=== PATIENT | female | born 1965 | race Caucasian/White ===

== ENCOUNTER 2018-09-08 19:25 | Emergency (ER) | payer MEDICAID, OTHER ==
[2018-09-08] MEDS ORDERED: Albuterol 0.083% Inhal Sol (2.5 mg/3 mL) UD ONE (21:15)
[2018-09-08] MEDS: Albuterol 0.083% Inhal Sol (2.5 mg/3 mL) UD INH SCH (21:15)
[2018-09-08 21:44] VITALS: BP 105/67; PULSE 95; RESP 19; TEMP 98.6; O2SAT 96
[2018-09-08] MEDS ORDERED: Promethazine/Cod 6.25mg-10mg/5ml Syr UD PO STA (21:54)
[2018-09-08] MEDS ORDERED: Promethazine/Cod 6.25mg-10mg/5ml Syr UD ONE (22:06)
--- NOTE | 2018-09-08 22:46 | C.PDOC ---
History Of Present Illness 53 year old female presents with generalized body aches, cough, and fever since yesterday. Denies sick contact, recent travel, SOB, or chest pain. HPI: Influenza Time Seen by Provider: 09/08/18 20:15 Chief Complaint: Flu-like Symptoms History Per: Patient Exam Limitations: no limitations Have you had recent travel within the past 21 days to any of the following countries: [place], [place], [place] or [place]?: No Onset/Duration Of Symptoms: Days (Yesterday) Symptoms include: fever, bodyaches, cough. denies: chest pain, other (SOB) Sick Contacts (Context): None Hx Influenza Vaccination: No Past Medical History Reviewed: Historical Data, Nursing Documentation, Vital Signs Vital Signs: Last Vital Signs Temp 98.6 F 09/08/18 21:42 Pulse 95 H 09/08/18 21:42 Resp 19 09/08/18 21:42 BP 105/67 09/08/18 21:42 Pulse Ox 96 09/08/18 21:42 - Medical History PMH: HTN Family History: States: No Known Family Hx - Social History Hx Tobacco Use: No Hx Alcohol Use: No Hx Substance Use: No - Immunization History Hx Tetanus Toxoid Vaccination: No Hx Influenza Vaccination: No Hx Pneumococcal Vaccination: No Review Of Systems Constitutional: Positive for: Fever Cardiovascular: Negative for: Chest Pain Respiratory: Positive for: Cough. Negative for: Shortness of Breath Gastrointestinal: Negative for: Vomiting, Diarrhea Musculoskeletal: Positive for: Other (Generalized body aches) Physical Exam - Physical Exam Appears: Non-toxic Skin: Normal Color, Warm, Dry Head: Atraumatic, Normacephalic Eye(s): bilateral: Normal Inspection, PERRL Ear(s): Bilateral: Normal Nose: Normal Oral Mucosa: Moist Throat: Normal, No Erythema, No Exudate Neck: Normal, Supple Chest: Symmetrical, No Tenderness Cardiovascular: Rhythm Regular Respiratory: Normal Breath Sounds, No Rales, Rhonchi, No Wheezing Gastrointestinal/Abdominal: Soft, No Tenderness Neurological/Psych: Oriented x3, Normal Cognition Gait: Steady - ECG O2 Sat by Pulse Oximetry: 96 (Room air) Pulse Ox Interpretation: Normal - Radiology X-Ray: Interpreted by Me, Viewed By Me X-Ray Interpretation: No Acute Disease - Progress ED Course And Treament: Duoneb, promethazine/codeine, tlyneol, and prednisone administered. CXR and flu swab ordered, patient positive for flu a, tamiflu administered. Patient is resting comfortably in no acute distress, vitals are stable, temperature has improved, will discharge home with Rx and instructions to follow up with PMD. Disposition Counseled Patient/Family Regarding: Diagnosis, Need For Followup, Rx Given - Disposition Referrals: [facility] [Outside] Disposition: HOME/ ROUTINE Disposition Time: 22:42 Condition: STABLE Additional Instructions: Please follow up with PMD Increase PO fluids Take medications as directed Return to ER if worse Prescriptions: Benzonatate [Tessalon Perles] 200 mg PO TID #14 sgl Ibuprofen [Motrin] 600 mg PO Q6H #30 tab Oseltamivir Cap [Tamiflu] 75 mg PO BID #10 cap Instructions: Flu, Adult (DC) Forms: [employer] (Tajik), Work Excuse Print Language: MONGOLIAN - Clinical Impression Clinical Impression: Influenza 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 - Scribe Statement The provider has reviewed the documentation as recorded by the Scribwesley Coffman All medical record entries made by the Annieibwesley were at my direction and personally dictated by me. I have reviewed the chart and agree that the record accurately reflects my personal performance of the history, physical exam, medical decision making, and the department course for this patient. I have also personally directed, reviewed, and agree with the discharge instructions and disposition.
--- NOTE | 2018-09-09 10:32 | RAD ---
Chest x-ray two views HISTORY: Cough congestion and fever. COMPARISON: None available. Findings: Bibasilar breast and nipple shadows. No focal infiltrate or effusion. Upper lobe granulomatous changes. Heart size within normal limits. Impression: No focal infiltrate or effusion.
== END 2018-09-08 23:09 | disposition home or self-care (01) ==
LOC: C.ER 19:25
DX: J09.X2 Influenza due to identified novel influenza A virus with other respiratory manifestations (principal)